=== PATIENT | male | born 1985 | race Caucasian/White ===

== ENCOUNTER 2016-09-16 12:10 | Emergency (ER) | payer MEDICAID ==
[2016-09-16] MEDS ORDERED: Ketorolac 60 MG/2 ML SDV IM ONE (12:31)
--- NOTE | 2016-09-16 12:40 | EDM.PDOC ---
ED HPI GENERAL MEDICAL PROBLEM - General Chief Complaint: Upper Extremity Injury/Pain Stated Complaint: ARM NUMBNESS Time Seen by Provider: 09/16/16 12:18 Source of Information: Reports: Patient, Family History Limitations: Reports: No Limitations - History of Present Illness INITIAL COMMENTS - FREE TEXT/NARRATIVE: 31 years old w m in previously healthy condition, came to the ed after he woke up this am with pain at his mid upper right back, worse with movement of his r shoulder. He denies a direct trauma. Did not take any meds [employer]. No N/V/D or any other acute medical issues. Normal vital on arrival. Onset: Today Onset Date: 09/16/16 Onset Time: 06:00 Duration: Hour(s):, Intermittent Location: Reports: Chest (posterior), Upper Extremity, Right (posterior shoulder ) Quality: Reports: Ache, Burning, Dull Severity: Moderate Improves with: Reports: Cold Therapy, Medication Worsens with: Reports: Movement Associated Symptoms: Reports: No Other Symptoms Right Arm Pain Score (Numeric/FACES): 6 - Related Data Allergies Allergy/AdvReac Type Severity Reaction Status Date / Time Penicillins Allergy Nausea Verified 09/16/16 12:17 Home Meds: Home Meds NK [No Known Home Meds] 09/16/16 [History] Review of Systems - Review of Systems Review Of Systems: See Below Constitutional: Reports: No Symptoms Eyes: Reports: No Symptoms Ears: Reports: No Symptoms Nose: Reports: No Symptoms Mouth/Throat: Reports: No Symptoms Respiratory: Reports: No Symptoms Cardiovascular: Reports: No Symptoms GI/Abdominal: Reports: No Symptoms Genitourinary: Reports: No Symptoms Musculoskeletal: Reports: Back Pain, Muscle Pain Skin: Reports: No Symptoms Neurological: Reports: No Symptoms Psychiatric: Reports: No Symptoms ED EXAM, GENERAL - Physical Exam Exam: See Below Exam Limited By: No Limitations General Appearance: Alert, WD/WN, Mild Distress Eye Exam: Bilateral Eye: Normal Inspection Ears: Normal External Exam Ear Exam: Bilateral Ear: Auricle Normal Nose: Normal Inspection, Normal Mucosa Throat/Mouth: Normal Inspection, Normal Lips Head: Atraumatic, Normocephalic Neck: Normal Inspection, Supple, Non-Tender Respiratory/Chest: No Respiratory Distress, Lungs Clear, Normal Breath Sounds Cardiovascular: Normal Peripheral Pulses, Regular Rate, Rhythm, No Edema, No Gallop, No JVD, No Murmur, No Rub Peripheral Pulses: 1+: Femoral (L), Femoral (R) GI/Abdominal: Normal Bowel Sounds, Soft (Male) Exam: No Hernia, Normal Inspection Rectal (Males) Exam: Deferred Back Exam: Normal Inspection, Full Range of Motion Extremities: Normal Inspection, Other (pain r post shoulder with elevation of r shoulder. ) Neurological: Alert, Oriented, CN II-XII Intact, Normal Cognition, Normal Gait Psychiatric: Normal Affect, Normal Mood Skin Exam: Warm, Dry, Intact, Normal Color, No Rash Lymphatic: No Adenopathy Course - Vital Signs Text/Narrative:: 31 years old w m -smoker-in previously healthy condition, came to the ed after he woke up this am with pain at his mid upper right back, worse with movement of his r shoulder. He denies a direct trauma. Did not take any meds [employer]. No N/V/ D or any other acute medical issues. Normal vital on arrival. PE: Tender r mid post C/W radiating to r shoulder Imaging: CXR 2 view NAD Impression: Chest wall sprain. Tx: Toradol, Ice. Reexam: Improved Plan: D/c with instructions Last Recorded V/S: Last Vital Signs Temp 36.4 C 09/16/16 12:18 Pulse 79 09/16/16 12:18 Resp 15 09/16/16 12:18 BP 125/81 09/16/16 12:18 Pulse Ox 100 09/16/16 12:18 - Orders/Labs/Meds Orders: Active Orders 24 hr Category Date Time Status Cooling Warming Measures [RC] ASDIRECTED Care 09/16/16 12:32 Active CXR [Chest 2V] [CR] Stat Exams 09/16/16 12:33 Taken Ice Bag [Ice Therapy] [OM.PC] Routine Oth 09/16/16 12:32 Ordered Meds: Medications Discontinued Medications Generic Name Dose Route Start Last Admin Trade Name Evelyn PRN Reason Stop Dose Admin Ketorolac Tromethamine 60 mg 09/16/16 12:31 09/16/16 12:37 Toradol IM 09/16/16 12:32 60 mg ONETIME ONE Administration Departure - Departure Time of Disposition: 13:28 Disposition: Home, Self-Care 01 Condition: Good Clinical Impression: Sprain of chest wall Qualifiers: Encounter type: initial encounter Qualified Code(s): S23.8XXA - Sprain of other specified parts of thorax, initial encounter - Discharge Information Instructions: Shoulder Pain Referrals: PCP,None [Primary Care Provider] - Forms: ED Department Discharge, Return to Work/School Form Additional Instructions: Please take motrin for pain, please apply ice to the affected area, please come back if your symptoms get worse acutely. - My Orders Last 24 Hours: My Active Orders 09/16/16 12:32 Cooling Warming Measures [RC] ASDIRECTED Ice Bag [Ice Therapy] [OM.PC] Routine 09/16/16 12:33 CXR [Chest 2V] [CR] Stat - Assessment/Plan Last 24 Hours: My Active Orders 09/16/16 12:32 Cooling Warming Measures [RC] ASDIRECTED Ice Bag [Ice Therapy] [OM.PC] Routine 09/16/16 12:33 CXR [Chest 2V] [CR] Stat
[2016-09-16 13:45] VITALS: BP 125/67
--- NOTE | 2016-09-16 14:37 | CR ---
INDICATION: Right chest wall pain, no trauma history. CHEST: PA and lateral views of the chest revealed the heart, mediastinum, and bony thorax to be unremarkable. An active infiltrate, effusion, contusion, or pneumothorax was not identified. IMPRESSION: No active disease. MTDD
== END 2016-09-16 13:36 | disposition home or self-care (01) ==
LOC: FB.ED 12:10
DX: S23.8XXA Sprain of other specified parts of thorax, initial encounter (principal); Z88.0 Allergy status to penicillin; X58.XXXA Exposure to other specified factors, initial encounter
CPT/HCPCS: 71020; 96372; 99284; J1885

== ENCOUNTER 2017-12-21 01:53 | Emergency (ER) | payer OTHER, MEDICAID ==
[2017-12-21 02:58] VITALS: BP 127/75
[2017-12-21] MEDS ORDERED: Ketorolac 30 MG/ML SDV IM ONE (03:40)
[2017-12-21] MEDS ORDERED: Ketorolac 60 MG/2 ML SDV ONE (03:58)
[2017-12-21] MEDS ORDERED: Meloxicam 7.5 MG Tab ONE (03:58)
[2017-12-21] MEDS ORDERED: Ketorolac 60 MG/2 ML SDV IM ONE (04:00)
[2017-12-21] MEDS ORDERED: Meloxicam 7.5 MG Tab PO STA (04:08)
--- NOTE | 2017-12-21 23:56 | EDM.PDOC ---
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 This pain is persistent and no matter what he does pain doesn't decrease. The pain is made worse by activity especially with dorsiflexion of his wrist against any active resistant forc causes pain in the area of the right lateral epicondyle - Related Data Allergies Allergy/AdvReac Type Severity Reaction Status Date / Time Penicillins Allergy Nausea and Verified 12/21/17 02:51 Vomiting Home Meds: Home Meds Meloxicam [Mobic] 15 mg PO DAILY #20 tablet 12/21/17 [Rx] Past Medical History - Past Health History Medical/Surgical History: Denies Medical/Surgical History HEENT History: Reports: Other (See Below) Other HEENT History: Hx tooth infection. Musculoskeletal History: Reports: Back Pain, Chronic, Other (See Below) Other Musculoskeletal History: Ongoing back pain s/p injury. Left knee problems. Social & Family History - Tobacco Use Smoking Status *Q: Current Every Day Smoker Years of Tobacco use: 15 Packs/Tins Daily: 0.5 - Caffeine Use Caffeine Use: Reports: Energy Drinks, Soda Review of Systems - Review of Systems Review Of Systems: See Below Constitutional: Reports: No Symptoms Eyes: Reports: No Symptoms Ears: Reports: No Symptoms Nose: Reports: No Symptoms Mouth/Throat: Reports: No Symptoms Respiratory: Reports: No Symptoms Cardiovascular: Reports: No Symptoms GI/Abdominal: Reports: No Symptoms Genitourinary: Reports: No Symptoms Musculoskeletal: Reports: Joint Pain Skin: Reports: No Symptoms Neurological: Reports: No Symptoms Psychiatric: Reports: No Symptoms ED EXAM, GENERAL - Physical Exam Exam: See Below Free Text/Narrative:: This pleasant young man has moderate pain on his right elbow with any lifting Exam Limited By: No Limitations General Appearance: Alert, Moderate Distress Eye Exam: Bilateral Eye: Normal Inspection Ears: Normal External Exam, Normal Canal Nose: Normal Inspection Throat/Mouth: Normal Inspection Head: Atraumatic Neck: Normal Inspection, Supple, Non-Tender, Full Range of Motion Respiratory/Chest: No Respiratory Distress, Lungs Clear, Normal Breath Sounds, No Accessory Muscle Use, Chest Non-Tender, Other Cardiovascular: Normal Peripheral Pulses, Regular Rate, Rhythm, No Edema, No Gallop, No JVD, No Murmur, No Rub Peripheral Pulses: 1+: Radial (L), Radial (R) GI/Abdominal: Normal Bowel Sounds, Soft, Non-Tender, No Organomegaly, No Distention (Male) Exam: Normal Inspection Rectal (Males) Exam: Deferred Back Exam: Normal Inspection Extremities: Normal Inspection, No Pedal Edema, Normal Capillary Refill, Other ( right dominant hand lateral epicondyle is tender to palpation. There is no swelling. Dorsalis symmetry of the epicondyles. No antecubital tenderness or olecranon tenderness. Extension and flexion causes pain, flexion against active resistance increases the pain over his right lateral epicondyle. No dysesthesia rest and forearm no loss of sensation distal forearm no change in muscle bulk symmetry of the muscles of the both elbows and upper and lower arms.) Neurological: Oriented, Normal Reflexes Course - Vital Signs Last Recorded V/S: Last Vital Signs Temp 36.4 C 12/21/17 02:20 Pulse 83 12/21/17 02:20 Resp 16 12/21/17 02:20 BP 127/75 12/21/17 02:20 Pulse Ox 100 12/21/17 02:20 - Orders/Labs/Meds Meds: Medications Discontinued Medications Generic Name Dose Route Start Last Admin Trade Name Rmq PRN Reason Stop Dose Admin Ketorolac Tromethamine Confirm 12/21/17 03:58 12/21/17 13:03 Toradol Administered 12/21/17 03:59 Not Given Dose 60 mg .ROUTE .STK-MED ONE Ketorolac Tromethamine 60 mg 12/21/17 04:00 12/21/17 04:04 Toradol IM 12/21/17 04:01 60 mg ONETIME ONE Administration Ketorolac Tromethamine 60 mg 12/21/17 03:40 12/21/17 13:04 Toradol IM 12/21/17 03:41 Not Given ONETIME ONE Meloxicam Confirm 12/21/17 03:58 12/21/17 13:02 Mobic Administered 12/21/17 03:59 Not Given Dose 15 mg .ROUTE .STK-MED ONE Meloxicam 15 mg 12/21/17 09:00 12/21/17 13:04 Mobic PO Not Given DAILY VICKIE Meloxicam 15 mg 12/21/17 04:08 12/21/17 04:08 Mobic PO 12/21/17 04:09 15 mg NOW STA Administration Departure - Departure Time of Disposition: 02:30 Disposition: Home, Self-Care 01 Clinical Impression: Lateral epicondylitis (tennis elbow) Qualifiers: Laterality: right Qualified Code(s): M77.11 - Lateral epicondylitis, right elbow - Discharge Information *PRESCRIPTION DRUG MONITORING PROGRAM REVIEWED*: Not Applicable *COPY OF PRESCRIPTION DRUG MONITORING REPORT IN PATIENT DAMI: Not Applicable Prescriptions: Meloxicam [Mobic] 15 mg PO DAILY #20 tablet Referrals: PCP,None [Primary Care Provider] - Forms: ED Department Discharge Additional Instructions: arrange to see Dr Del Rosario the orthopedist at [facility], he is here every day and if you call this week perhaps you can get in readily for evaluation ice packs Arranged to be off work until you have a satisfactory recovery of her elbow. Also I have prescribed meloxicam 15 mg daily. perhaps counter force bracing or eccentric progressive exercises, or isometric strengthening exercises may be helpful. There are multiple other treatments therapies that are available for the treatment of lateral epicondylitis. Have your doctor make those arrangements for physical therapy.
== END 2017-12-21 04:30 | disposition home or self-care (01) ==
LOC: FB.ED 01:53
DX: M77.11 Lateral epicondylitis, right elbow (principal); F17.210 Nicotine dependence, cigarettes, uncomplicated; Z79.899 Other long term (current) drug therapy; Z88.0 Allergy status to penicillin
CPT/HCPCS: 96372; 99282; A9270; J1885

== ENCOUNTER 2021-01-18 17:26 | Emergency (ER) | payer MEDICAID, OTHER ==
[2021-01-18] MEDS ORDERED: Acetaminophen/HYDROcodone 325-5 MG Tab PO ONE (17:27)
[2021-01-18 17:39] VITALS: BP 145/90; PULSE 108
[2021-01-18] MEDS ORDERED: Ketorolac 30 MG/ML SDV IM ONE (17:55)
--- NOTE | 2021-01-18 17:57 | EDM.PDOC ---
ED HPI GENERAL MEDICAL PROBLEM - General Stated Complaint: ABSESSED TOOTH Time Seen by Provider: 01/18/21 17:40 Source of Information: Reports: Patient History Limitations: Reports: No Limitations - History of Present Illness INITIAL COMMENTS - FREE TEXT/NARRATIVE: pt c/o tooth pain at left lower jaw X 2 days, denies fever chills or any other associated sx or concerns. 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 Musculoskeletal History: Reports: Back Pain, Chronic, Other (See Below) Other Musculoskeletal History: Ongoing back pain s/p injury. Left knee problems. Social & Family History - Family History Family Medical History: No Pertinent Family History - Tobacco Use Tobacco Use Status *Q: Current Every Day Tobacco User Years of Tobacco use: 20 Packs/Tins Daily: 0.5 - Caffeine Use Caffeine Use: Reports: Soda - Recreational Drug Use Recreational Drug Use: No ED ROS GENERAL - Review of Systems Review Of Systems: See Below Constitutional: Reports: No Symptoms Respiratory: Reports: No Symptoms Cardiovascular: Reports: No Symptoms ED EXAM, GENERAL - Physical Exam Exam: See Below Exam Limited By: No Limitations General Appearance: Alert, Mild Distress Eye Exam: Bilateral Eye: Normal Inspection Ears: Normal TMs Throat/Mouth: Other (pt has extenssive dental decay and tenderness over left lower molars . no facial swelling or palpbale abcess ) Head: Atraumatic, Normocephalic Neck: Normal Inspection, Supple Respiratory/Chest: No Respiratory Distress, Lungs Clear Cardiovascular: Normal Peripheral Pulses, Regular Rate, Rhythm Course - Vital Signs Text/Narrative:: pt has dental infection, doxycycline was prescribed and 14 hydrocodone, also pt was given toradol here. pt to follow with his dentist . Last Recorded V/S: Last Vital Signs Temp 36.8 C 01/18/21 17:26 Pulse 108 H 01/18/21 17:26 Resp 20 01/18/21 17:26 BP 145/90 H 01/18/21 17:26 Pulse Ox 97 01/18/21 17:26 Departure - Departure Time of Disposition: 17:57 Disposition: Home, Self-Care 01 Clinical Impression: Dental infection - Discharge Information Referrals: PCP,None [Primary Care Provider] - Sepsis Event Note (ED) - Evaluation Sepsis Screening Result: No Definite Risk - Focused Exam Vital Signs: Vital Signs Temp Pulse Resp BP Pulse Ox 01/18/21 17:26 36.8 C 108 H 20 145/90 H 97
== END 2021-01-18 18:20 | disposition home or self-care (01) ==
LOC: FB.ED 17:26
DX: K04.7 Periapical abscess without sinus (principal); Z72.0 Tobacco use; Z88.0 Allergy status to penicillin
CPT/HCPCS: 96372; 99282; A9270-GY; J1885